=== PATIENT | female | born 1935 | race Two or more races ===

== ENCOUNTER 2018-01-02 15:50 | Inpatient (IN) | payer MEDICARE, OTHER ==
[~2018-01-02] VITALS: Ht 157.5 cm; Wt 49.0 kg
[2018-01-02] MEDS ORDERED: Sodium Chloride 500ML 500 ML IV ONE (16:15)
[2018-01-02] MEDS ORDERED: Isovue-300 100ml vial INJ PRN (16:15)
[2018-01-02 16:36] LABS: BASOPHILS % (AUTO) 1.6 % (0.0-2.0); HEMATOCRIT 34.1 % (37.0-47.0); HEMOGLOBIN 12.1 G/DL (12.0-16.0); LYMPHOCYTES % (AUTO) 12.2 % (20.0-45.0); MEAN CORPUSCULAR VOLUME 89 FL (80-99); MONOCYTES % (AUTO) 12.4 % (1.0-10.0); NEUTROPHILS % (AUTO) 73.7 % (45.0-75.0); PLATELET COUNT 210 K/UL (150-450); RED BLOOD COUNT 3.83 M/UL (4.20-5.40); RED CELL DISTRIBUTION WIDTH 12.3 % (11.6-14.8); WHITE BLOOD COUNT 10.4 K/UL (4.8-10.8)
[2018-01-02 16:40] LABS: INR 0.9 (0.9-1.1)
[2018-01-02 16:45] LABS: ANION GAP 12 mmol/L (5-15); BLOOD UREA NITROGEN 11 mg/dL (7-18); CALCIUM 9.5 MG/DL (8.5-10.1); CARBON DIOXIDE 27 MMOL/L (21-32); CHLORIDE 97 MMOL/L (98-107); CREATININE 0.8 MG/DL (0.55-1.30); POTASSIUM 4.1 MMOL/L (3.5-5.1); SODIUM 136 MMOL/L (136-145)
[2018-01-02 16:48] LABS: ALANINE AMINOTRANSFERASE 28 U/L (12-78); ALBUMIN 3.8 G/DL (3.4-5.0); ALKALINE PHOSPHATASE 77 U/L (46-116); ASPARTATE AMINO TRANSFERASE 27 U/L (15-37); BILIRUBIN,TOTAL 0.8 MG/DL (0.2-1.0); CHOLESTEROL 252 MG/DL (< 200); HDL CHOLESTEROL 122 MG/DL (40-60); TRIGLYCERIDES 27 MG/DL (30-150)
[2018-01-02 16:59] VITALS: BP 140/71
--- NOTE | 2018-01-02 17:01 | Diagnostic Imaging Report ---
Indication: Altered mental status Technique: spiral acquisitions obtained through the brain. Angled axial and coronal 5 x 5 mm slices were reconstructed. No IV contrast utilized. Radiation dose was minimized using automated exposure control Total dose length product 1400.72 mGycm. CTDIvol(s) 70.38 mGy Comparison: none FINDINGS: No acute hemorrhage or edema. No mass effect or midline shift. There is age-related enlargement of the ventricles and extra axial CSF spaces. There is periventricular deep white matter ischemic change. Normal gross-white differentiation. Visualized orbits are unremarkable. Visualized sinuses are unremarkable. Intact calvarium. IMPRESSION: Chronic and age-related changes. Negative for acute intracranial bleed or mass effect The CT scanner at [facility] is accredited by the [employer] and the scans are performed using protocols designed to limit radiation exposure to as low as reasonably achievable to attain images of sufficient resolution adequate for diagnostic evaluation
[2018-01-02] MEDS: Thiamine HCl 100 MG in D5W 55 ML IVPB SCH (17:03)
[2018-01-02 17:04] LABS: APPEARANCE,URINE CLOUDY; BILIRUBIN, URINE NEGATIVE (NEGATIVE); COLOR,URINE PALE YELLOW; GLUCOSE, URINE (UA) NEGATIVE (NEGATIVE); KETONES,URINE 2+ (NEGATIVE); LEUKOCYTE ESTERASE ,URINE 3+ (NEGATIVE); NITRITE,URINE NEGATIVE (NEGATIVE); PH,URINE 8 (4.5-8.0); PROTEIN,URINE 2+ (NEGATIVE); UROBILINOGEN,URINE NORMAL MG/DL (0.0-1.0)
[2018-01-02] MEDS ORDERED: cefTRIAXone 1 GM in NS 55 ML IVPB ONE (17:15)
--- NOTE | 2018-01-02 18:06 | Diagnostic Imaging Report ---
EXAM: CT Abdomen and Pelvis With Intravenous Contrast CLINICAL HISTORY: PAIN TECHNIQUE: Axial computed tomography images of the abdomen and pelvis with intravenous contrast. CTDI is 11 mGy and DLP is 509 mGy-cm. One or more of the following dose reduction techniques were used: automated exposure control, adjustment of the mA and/or kV according to patient size, use of iterative reconstruction technique. COMPARISON: No relevant prior studies available. FINDINGS: Lung bases: No mass. No consolidation. ABDOMEN: Liver: Small hepatic hypodensities likely cysts, too small to characterize. Gallbladder and bile ducts: Unremarkable. No calcified stones. Pancreas: Unremarkable. Spleen: Unremarkable. Adrenals: Unremarkable. Kidneys and ureters: No hydronephrosis. Bilateral ureteral enhancement concerning for UTI. Stomach and bowel: Unremarkable. No obstruction. PELVIS: Appendix: No findings to suggest acute appendicitis. Bladder: Thickened bladder concerning for cystitis. Cannot exclude underlying bladder lesion. Reproductive: Hysterectomy. ABDOMEN and PELVIS: Intraperitoneal space: No free air. Bones/joints: No acute fracture. Soft tissues: Unremarkable. Vasculature: Unremarkable. Lymph nodes: Unremarkable. No enlarged lymph nodes. IMPRESSION: 1. Thickened bladder concerning for cystitis. Cannot exclude underlying bladder lesion. 2. No hydronephrosis. Bilateral ureteral enhancement concerning for UTI.
[2018-01-02 19:01] VITALS: BP 159/71
[2018-01-02] MEDS ORDERED: Aspirin Baby 81mg ORAL SCH (19:15)
--- NOTE | 2018-01-02 19:41 | Emergency Room Report ---
History of Present Illness General Chief Complaint: Generalized Weakness Source: Patient Present Illness HPI Patient is an 82-year-old female who presented after increased generalized weakness. Patient reported having recently been hospitalized and treated for H. pylori with multiple antibiotics. Patient had been having increased dysuria. She reports having increased lower abdominal pain. The patient denies any fever. The patient had reportedly been having multiple falls prior recent hospitalization. Patient prior cataract surgery to her left eye. The patient denies prior history of dementia Allergies: Coded Allergies: No Known Allergies (Unverified , 01/02/18) Patient History Past Medical History: see triage record Reviewed Nursing Documentation: PMH: Agreed; PSxH: Agreed Nursing Documentation-PMH Past Medical History: No History, Except For Hx Diabetes: Yes - PRE DM Review of Systems All Other Systems: negative except mentioned in HPI Physical Exam Vital Signs Date Time Temp Pulse Resp B/P (MAP) Pulse Ox O2 Delivery O2 Flow Rate FiO2 01/02/18 15:51 99.1 91 18 132/76 99 Room Air 99.1 Sp02 EP Interpretation: reviewed, normal General Appearance: normal inspection, well appearing, no apparent distress, alert, Chronically Ill Head: atraumatic Eyes: bilateral eye other - left pupil postsurgical ENT: normal ENT inspection, hearing grossly normal, normal voice Neck: normal inspection, full range of motion, supple, no bony tend Respiratory: normal inspection, lungs clear, normal breath sounds, no respiratory distress, no retraction, no wheezing Cardiovascular #1: regular rate, rhythm, no edema Gastrointestinal: normal inspection, normal bowel sounds, non tender, soft, no guarding, no hernia Genitourinary: no CVA tenderness Musculoskeletal: normal inspection, back normal, normal range of motion Neurologic: normal inspection, alert, oriented x3, responsive, support services coordinator III-XII nml as tested, speech normal Psychiatric: normal inspection, judgement/insight normal, mood/affect normal Skin: normal inspection, normal color, no rash Medical Decision Making Diagnostic Impression: Primary Impression: UTI (urinary tract infection) Additional Impression: Generalized weakness ER Course Patient presented for generalized weakness. Differential diagnosis included was not limited to anemia, urinary tract infection, electrolyte abnormality, hypothyroidism, myocardial infarction, myasthenia gravis, dehydration, among others. Because of complexity of patient's case laboratory testing and imaging studies were ordered. The patient noted have evidence of urinary infection. Patient was started on IV antibiotics. Patient was noted to have subsequent change in her mental status. Patient was given rectal aspirin. CT abdomen pelvis read by radiology showed the findings consistent with cystitis. The CT of the head read by radiology showed chronic ischemic white matter changes without evident acute CVA Patient was discussed with Dr. Owusu for Dr. Arreguin for inpatient management. Labs Test 01/02/18 16:15 01/02/18 16:47 White Blood Count 10.4 K/UL (4.8-10.8) Red Blood Count 3.83 M/UL (4.20-5.40) Hemoglobin 12.1 G/DL (12.0-16.0) Hematocrit 34.1 % (37.0-47.0) Mean Corpuscular Volume 89 FL (80-99) Mean Corpuscular Hemoglobin 31.5 PG (27.0-31.0) Mean Corpuscular Hemoglobin Concent 35.4 G/DL (32.0-36.0) Red Cell Distribution Width 12.3 % (11.6-14.8) Platelet Count 210 K/UL (150-450) Mean Platelet Volume 6.2 FL (6.5-10.1) Neutrophils (%) (Auto) 73.7 % (45.0-75.0) Lymphocytes (%) (Auto) 12.2 % (20.0-45.0) Monocytes (%) (Auto) 12.4 % (1.0-10.0) Eosinophils (%) (Auto) 0.0 % (0.0-3.0) Basophils (%) (Auto) 1.6 % (0.0-2.0) Prothrombin Time 9.7 SEC (9.30-11.50) Prothromb Time International Ratio 0.9 (0.9-1.1) Activated Partial Thromboplast Time 30 SEC (23-33) Sodium Level 136 MMOL/L (136-145) Potassium Level 4.1 MMOL/L (3.5-5.1) Chloride Level 97 MMOL/L (98-107) Carbon Dioxide Level 27 MMOL/L (21-32) Anion Gap 12 mmol/L (5-15) Blood Urea Nitrogen 11 mg/dL (7-18) Creatinine 0.8 MG/DL (0.55-1.30) Estimat Glomerular Filtration Rate mL/min (>60) Glucose Level 125 MG/DL (74-106) Calcium Level 9.5 MG/DL (8.5-10.1) Total Bilirubin 0.8 MG/DL (0.2-1.0) Aspartate Amino Transf (AST/SGOT) 27 U/L (15-37) Alanine Aminotransferase (ALT/SGPT) 28 U/L (12-78) Alkaline Phosphatase 77 U/L (46-116) Total Protein 7.6 G/DL (6.4-8.2) Albumin 3.8 G/DL (3.4-5.0) Globulin 3.8 g/dL Albumin/Globulin Ratio 1.0 (1.0-2.7) Triglycerides Level 27 MG/DL (30-150) Cholesterol Level 252 MG/DL (< 200) LDL Cholesterol 115 mg/dL (<100) HDL Cholesterol 122 MG/DL (40-60) Cholesterol/HDL Ratio 2.1 (3.3-4.4) Urine Color Pale yellow Urine Appearance Cloudy Urine pH 8 (4.5-8.0) Urine Specific [place] 1.010 (1.005-1.035) Urine Protein 2+ (NEGATIVE) Urine Glucose (UA) Negative (NEGATIVE) Urine Ketones 2+ (NEGATIVE) Urine Occult Blood 5+ (NEGATIVE) Urine Nitrite Negative (NEGATIVE) Urine Bilirubin Negative (NEGATIVE) Urine Urobilinogen Normal MG/DL (0.0-1.0) Urine Leukocyte Esterase 3+ (NEGATIVE) Urine RBC 2-4 /HPF (0 - 2) Urine WBC Tntc /HPF (0 - 2) Urine Squamous Epithelial Cells Few /LPF (NONE/OCC) Urine Bacteria Moderate /HPF (NONE) EKG Diagnostic Results Rate: normal Rhythm: NSR ST Segments: no acute changes Rhythm Strip Diag. Results EP Interpretation: yes Rhythm: NSR, no PVC's, no ectopy Last Vital Signs Date Time Temp Pulse Resp B/P (MAP) Pulse Ox O2 Delivery O2 Flow Rate FiO2 01/02/18 19:01 128 25 159/71 98 Room Air 01/02/18 16:59 99.2 99.2 Status: unchanged Disposition: ADMITTED INPATIENT Condition: Serious Referrals: NOT CHOSEN IPA/,REFERRING (PCP) Jaswant White MD January 02, 2018 19:41
[2018-01-02 20:30] VITALS: BP 110/56
[2018-01-02] MEDS ORDERED: ATORVASTATIN CA10 MG ORAL (21:35)
[2018-01-02] MEDS ORDERED: TIMOPTIC 0.25%1 DROP BOTH EYES (21:35)
[2018-01-02] MEDS: D5 1/2NS 1,000 ML IV SCH (21:39)
[2018-01-03] VITALS: BP 100/60
[2018-01-03 04:00] VITALS: BP 111/63
[2018-01-03 07:51] LABS: BASOPHILS % (AUTO) 0.4 % (0.0-2.0); EOSINOPHILS % (AUTO) 0.1 % (0.0-3.0); HEMATOCRIT 32.7 % (37.0-47.0); HEMOGLOBIN 10.9 G/DL (12.0-16.0); LYMPHOCYTES % (AUTO) 13.5 % (20.0-45.0); MEAN CORPUSCULAR VOLUME 92 FL (80-99); NEUTROPHILS % (AUTO) 74.2 % (45.0-75.0); PLATELET COUNT 209 K/UL (150-450); RED BLOOD COUNT 3.57 M/UL (4.20-5.40); RED CELL DISTRIBUTION WIDTH 12.8 % (11.6-14.8); WHITE BLOOD COUNT 12.1 K/UL (4.8-10.8)
[2018-01-03 07:59] LABS: ANION GAP 9 mmol/L (5-15); BLOOD UREA NITROGEN 7 mg/dL (7-18); CALCIUM 8.8 MG/DL (8.5-10.1); CARBON DIOXIDE 27 MMOL/L (21-32); CHLORIDE 105 MMOL/L (98-107); CREATININE 0.8 MG/DL (0.55-1.30); POTASSIUM 3.5 MMOL/L (3.5-5.1); SODIUM 140 MMOL/L (136-145)
[2018-01-03 08:00] VITALS: BP 108/53
[2018-01-03] MEDS: Timolol 0.5% Op Soln 2.5ml BOTH EYES SCH ×2 (08:48→18:54)
[2018-01-03] MEDS ORDERED: Tubing IV Secondary IV ONE (10:49)
[2018-01-03] MEDS ORDERED: D5 1/2NS 1000ml IV ONE (10:49)
[2018-01-03] MEDS: D5 1/2NS 1,000 ML IV SCH (10:50)
[2018-01-03 12:00] VITALS: BP 106/62
--- NOTE | 2018-01-03 14:26 | History and Physical ---
History of Present Illness General Date patient seen: January 03, 2018 Reason for Hospitalization: Generalized Weakness Present Illness HPI Patient is an 82-year-old female who presented after increased generalized weakness. Patient reported having recently been hospitalized and treated for H. pylori with multiple antibiotics. Patient had been having increased dysuria. She reports having increased lower abdominal pain. The patient denies any fever. The patient had reportedly been having multiple falls prior recent hospitalization. Denies any cough, diarrhea. No shortness of breath Allergies: Coded Allergies: No Known Allergies (Unverified , 01/02/18) Medication History Scheduled Atorvastatin Calcium* (Lipitor*), 10 MG ORAL BEDTIME, (Reported) Timolol Maleate (Timolol Maleate), 1 DROP BOTH EYES TWICE A DAY, (Reported) Patient History Healthcare decision maker Resuscitation status Full Code Advanced Directive on File Yes Physical Exam Last 24 Hour Vital Signs Date Time Temp Pulse Resp B/P (MAP) Pulse Ox O2 Delivery O2 Flow Rate FiO2 01/03/18 12:00 97.1 80 18 106/62 99 97.1 01/03/18 12:00 97.1 80 17 106/62 99 Room Air 97.1 01/03/18 08:00 97.9 89 18 108/53 99 97.9 01/03/18 08:00 Room Air 01/03/18 04:00 97.9 91 18 111/63 100 97.9 01/03/18 00:00 Room Air 01/03/18 00:00 99.1 95 17 100/60 97 99.1 01/02/18 20:43 99.2 128 25 159/71 98 Room Air 99.2 01/02/18 20:30 Room Air 01/02/18 20:30 101.7 110 17 110/56 100 101.7 01/02/18 19:01 128 25 159/71 98 Room Air 01/02/18 16:59 99.2 91 12 140/71 100 Room Air 99.2 01/02/18 15:51 99.1 91 18 132/76 99 Room Air 99.1 Intake and Output 01/02/18 01/03/18 19:00 07:00 Intake Total 611 ml 776.25 ml Balance 611 ml 776.25 ml Intake Oral 0 ml IV Total 611 ml 776.25 ml # Voids 6 # Bowel Movements 6 Laboratory Tests Test 01/02/18 16:15 01/02/18 16:47 01/02/18 22:20 01/03/18 06:00 White Blood Count 10.4 K/UL (4.8-10.8) 12.1 K/UL (4.8-10.8) H Red Blood Count 3.83 M/UL (4.20-5.40) L 3.57 M/UL (4.20-5.40) L Hemoglobin 12.1 G/DL (12.0-16.0) 10.9 G/DL (12.0-16.0) L Hematocrit 34.1 % (37.0-47.0) L 32.7 % (37.0-47.0) L Mean Corpuscular Volume 89 FL (80-99) 92 FL (80-99) Mean Corpuscular Hemoglobin 31.5 PG (27.0-31.0) H 30.6 PG (27.0-31.0) Mean Corpuscular Hemoglobin Concent 35.4 G/DL (32.0-36.0) 33.5 G/DL (32.0-36.0) Red Cell Distribution Width 12.3 % (11.6-14.8) 12.8 % (11.6-14.8) Platelet Count 210 K/UL (150-450) 209 K/UL (150-450) Mean Platelet Volume 6.2 FL (6.5-10.1) L 6.5 FL (6.5-10.1) Neutrophils (%) (Auto) 73.7 % (45.0-75.0) 74.2 % (45.0-75.0) Lymphocytes (%) (Auto) 12.2 % (20.0-45.0) L 13.5 % (20.0-45.0) L Monocytes (%) (Auto) 12.4 % (1.0-10.0) H 12.0 % (1.0-10.0) H Eosinophils (%) (Auto) 0.0 % (0.0-3.0) 0.1 % (0.0-3.0) Basophils (%) (Auto) 1.6 % (0.0-2.0) 0.4 % (0.0-2.0) Prothrombin Time 9.7 SEC (9.30-11.50) Prothromb Time International Ratio 0.9 (0.9-1.1) Activated Partial Thromboplast Time 30 SEC (23-33) Sodium Level 136 MMOL/L (136-145) 140 MMOL/L (136-145) Potassium Level 4.1 MMOL/L (3.5-5.1) 3.5 MMOL/L (3.5-5.1) Chloride Level 97 MMOL/L (98-107) L 105 MMOL/L (98-107) Carbon Dioxide Level 27 MMOL/L (21-32) 27 MMOL/L (21-32) Anion Gap 12 mmol/L (5-15) 9 mmol/L (5-15) Blood Urea Nitrogen 11 mg/dL (7-18) 7 mg/dL (7-18) Creatinine 0.8 MG/DL (0.55-1.30) 0.8 MG/DL (0.55-1.30) Estimat Glomerular Filtration Rate mL/min (>60) mL/min (>60) Glucose Level 125 MG/DL (74-106) H 142 MG/DL (74-106) H Calcium Level 9.5 MG/DL (8.5-10.1) 8.8 MG/DL (8.5-10.1) Total Bilirubin 0.8 MG/DL (0.2-1.0) Aspartate Amino Transf (AST/SGOT) 27 U/L (15-37) Alanine Aminotransferase (ALT/SGPT) 28 U/L (12-78) Alkaline Phosphatase 77 U/L (46-116) Total Protein 7.6 G/DL (6.4-8.2) Albumin 3.8 G/DL (3.4-5.0) Globulin 3.8 g/dL Albumin/Globulin Ratio 1.0 (1.0-2.7) Triglycerides Level 27 MG/DL (30-150) L Cholesterol Level 252 MG/DL (< 200) H LDL Cholesterol 115 mg/dL (<100) H HDL Cholesterol 122 MG/DL (40-60) H Cholesterol/HDL Ratio 2.1 (3.3-4.4) L Urine Color Pale yellow Urine Appearance Cloudy Urine pH 8 (4.5-8.0) Urine Specific [place] 1.010 (1.005-1.035) Urine Protein 2+ (NEGATIVE) H Urine Glucose (UA) Negative (NEGATIVE) Urine Ketones 2+ (NEGATIVE) H Urine Occult Blood 5+ (NEGATIVE) H Urine Nitrite Negative (NEGATIVE) Urine Bilirubin Negative (NEGATIVE) Urine Urobilinogen Normal MG/DL (0.0-1.0) Urine Leukocyte Esterase 3+ (NEGATIVE) H Urine RBC 2-4 /HPF (0 - 2) H Urine WBC Tntc /HPF (0 - 2) H Urine Squamous Epithelial Cells Few /LPF (NONE/OCC) Urine Bacteria Moderate /HPF (NONE) H Stool Helicobacter pylori Antigen Pending Microbiology Date/Time Source Procedure Growth Status 01/02/18 16:47 Urine,Clean Catch Urine Culture - Preliminary Gram Negative [place] Resulted Height (Feet): 5 Height (Inches): 2.00 Weight (Pounds): 108 Medications Current Medications Medications (Trade) Dose Ordered Sig/Garrick Route PRN Reason Start Time Stop Time Status Last Admin Dose Admin Acetaminophen (Tylenol) 650 mg Q6H PRN ORAL Mild Pain/Temp > 100.5 01/02/18 21:15 02/01/18 21:14 Atorvastatin Calcium (Lipitor) 10 mg BEDTIME ORAL 01/03/18 21:00 02/02/18 20:59 Dextrose/Sodium Chloride 1,000 ml @ 75 mls/hr [id number] IV 01/02/18 21:30 02/01/18 21:29 01/03/18 10:50 Levofloxacin 150 ml @ 100 mls/hr Q48H IVPB 01/04/18 23:00 01/11/18 22:59 Ondansetron HCl (Zofran) 4 mg Q4H PRN IVP Nausea & Vomiting 01/02/18 21:15 02/01/18 21:14 Thiamine HCl 100 mg/Dextrose 56 ml @ 112 mls/hr Q24H IVPB 01/02/18 16:15 02/01/18 16:14 01/02/18 17:03 Timolol Maleate (Timoptic 0.5% Op Soln) 1 drop TWICE A DAY BOTH EYES 01/03/18 09:00 02/02/18 08:59 01/03/18 08:48 Assessment/Plan Problem List: (1) Generalized weakness ICD Codes: R53.1 - Weakness SNOMED: 70222761 (2) Syncopal episodes ICD Codes: R55 - Syncope and collapse SNOMED: 144758150 (3) UTI (urinary tract infection) ICD Codes: N39.0 - Urinary tract infection, site not specified SNOMED: 66328244 (4) Hypotension ICD Codes: I95.9 - Hypotension, unspecified SNOMED: 28362458 Status: stable Assessment/Plan - admit inpatient - levaquin for UTI - follow urine cx - follow blood cx - IVF - pain control - PT/OT - fall precaution - supportive care - resume home meds - check TSh Jordin Suarez M.D. January 03, 2018 14:26
[2018-01-03 15:53] VITALS: BP 121/74
[2018-01-03] MEDS: Thiamine HCl 100 MG in D5W 55 ML IVPB SCH (18:54)
[2018-01-03 20:00] VITALS: BP 127/70
[2018-01-04] VITALS: BP 141/72
[2018-01-04] MEDS: D5 1/2NS 1,000 ML IV SCH ×2 (00:33→13:46)
[2018-01-04 04:00] VITALS: BP 124/77
[2018-01-04 08:24] VITALS: BP 118/66
[2018-01-04] MEDS: Timolol 0.5% Op Soln 2.5ml BOTH EYES SCH ×2 (08:43→18:36)
[2018-01-04] MEDS ORDERED: 1/2 NS 1000ml IV ONE (11:35)
[2018-01-04 12:07] VITALS: BP 129/74
[2018-01-04 16:13] VITALS: BP 102/63
[2018-01-04] MEDS: Thiamine HCl 100 MG in D5W 55 ML IVPB SCH (18:36)
--- NOTE | 2018-01-04 18:36 | Internal Med Progress Note ---
Subjective Date of Service: January 04, 2018 Physician Name Jordin Suarez Attending Physician Bo Collazo MD Current Medications Medications (Trade) Dose Ordered Sig/Garrick Route PRN Reason Start Time Stop Time Status Last Admin Dose Admin Acetaminophen (Tylenol) 650 mg Q6H PRN ORAL Mild Pain/Temp > 100.5 01/02/18 21:15 02/01/18 21:14 Atorvastatin Calcium (Lipitor) 10 mg BEDTIME ORAL 01/03/18 21:00 02/02/18 20:59 01/03/18 20:24 Dextrose/Sodium Chloride 1,000 ml @ 75 mls/hr [id number] IV 01/02/18 21:30 02/01/18 21:29 01/04/18 13:46 Levofloxacin 150 ml @ 100 mls/hr Q48H IVPB 01/04/18 23:00 01/11/18 22:59 Ondansetron HCl (Zofran) 4 mg Q4H PRN IVP Nausea & Vomiting 01/02/18 21:15 02/01/18 21:14 Thiamine HCl 100 mg/Dextrose 56 ml @ 112 mls/hr Q24H IVPB 01/02/18 16:15 02/01/18 16:14 01/03/18 18:54 Timolol Maleate (Timoptic 0.5% Op Soln) 1 drop TWICE A DAY BOTH EYES 01/03/18 09:00 02/02/18 08:59 01/04/18 08:43 Allergies: Coded Allergies: No Known Allergies (Unverified , 01/02/18) All Systems: reviewed and negative except above Subjective No acute events overnight feeling better today complains of acid reflux and constipation Objective Last Vital Signs Date Time Temp Pulse Resp B/P (MAP) Pulse Ox O2 Delivery O2 Flow Rate FiO2 01/04/18 16:15 Room Air 01/04/18 16:13 98.2 77 20 102/63 97 98.2 General Appearance: no apparent distress EENT: PERRL/EOMI Neck: non-tender, normal alignment Cardiovascular: normal peripheral pulses Respiratory/Chest: chest wall non-tender Abdomen: normal bowel sounds Neurologic: alert, oriented x 3 Skin: normal pigmentation, warm/dry Microbiology Date/Time Source Procedure Growth Status 01/03/18 00:00 Urine,Clean Catch Urine Culture - Preliminary NO GROWTH Resulted 01/02/18 16:47 Urine,Clean Catch Urine Culture - Final Escherichia Coli Complete Intake and Output 01/03/18 01/04/18 19:00 07:00 Intake Total 1305 ml 881 ml Balance 1305 ml 881 ml Intake Oral 480 ml IV Total 825 ml 881 ml # Voids 4 Assessment/Plan Problem List: (1) Generalized weakness (2) Syncopal episodes (3) UTI (urinary tract infection) (4) Hypotension Assessment/Plan Assessment/Plan Problem List: (1) Generalized weakness ICD Codes: R53.1 - Weakness SNOMED: 82359542 (2) Syncopal episodes ICD Codes: R55 - Syncope and collapse SNOMED: 616436767 (3) UTI (urinary tract infection) ICD Codes: N39.0 - Urinary tract infection, site not specified SNOMED: 17325867 (4) Hypotension ICD Codes: I95.9 - Hypotension, unspecified SNOMED: 08834112 Status: stable Assessment/Plan - levaquin for UTI - follow urine cx- so far growing ecoli - IVF - pain control - PT/OT - fall precaution - supportive care - resume home meds - protonix 40 IV daily - bowel regimen DVT ppx fullcode Jordin Suarez M.D. January 04, 2018 18:36
[2018-01-04 20:00] VITALS: BP 109/70
[2018-01-05] VITALS: BP 138/78
[2018-01-05] MEDS: D5 1/2NS 1,000 ML IV SCH ×2 (01:45→15:30)
[2018-01-05 04:00] VITALS: BP 110/67
[2018-01-05 08:00] VITALS: BP_SYST 104; BP_SYST 128; BP_DIAS 60; BP_DIAS 63
[2018-01-05] MEDS: Docusate Sod/Senna tab ORAL SCH ×2 (09:18→17:08)
[2018-01-05] MEDS: Timolol 0.5% Op Soln 2.5ml BOTH EYES SCH ×2 (09:18→17:08)
[2018-01-05] MEDS: Pantoprazole Inj IVP SCH (09:18)
[2018-01-05 12:00] VITALS: BP 112/60
[2018-01-05 14:43] LABS: BASOPHILS % (AUTO) 0.9 % (0.0-2.0); EOSINOPHILS % (AUTO) 1.2 % (0.0-3.0); HEMATOCRIT 33.2 % (37.0-47.0); HEMOGLOBIN 11.5 G/DL (12.0-16.0); LYMPHOCYTES % (AUTO) 25.1 % (20.0-45.0); MEAN CORPUSCULAR VOLUME 90 FL (80-99); MONOCYTES % (AUTO) 17.5 % (1.0-10.0); NEUTROPHILS % (AUTO) 55.2 % (45.0-75.0); PLATELET COUNT 201 K/UL (150-450); RED BLOOD COUNT 3.67 M/UL (4.20-5.40); RED CELL DISTRIBUTION WIDTH 12.9 % (11.6-14.8); WHITE BLOOD COUNT 6.9 K/UL (4.8-10.8)
[2018-01-05 14:54] LABS: ANION GAP 10 mmol/L (5-15); BLOOD UREA NITROGEN 6 mg/dL (7-18); CALCIUM 8.9 MG/DL (8.5-10.1); CARBON DIOXIDE 24 MMOL/L (21-32); CHLORIDE 104 MMOL/L (98-107); CREATININE 0.7 MG/DL (0.55-1.30); POTASSIUM 3.7 MMOL/L (3.5-5.1); SODIUM 137 MMOL/L (136-145)
[2018-01-05 15:01] LABS: ALANINE AMINOTRANSFERASE 34 U/L (12-78); ALBUMIN/GLOBULIN RATIO 0.8 (1.0-2.7); ALKALINE PHOSPHATASE 84 U/L (46-116); ASPARTATE AMINO TRANSFERASE 20 U/L (15-37); BILIRUBIN,TOTAL 0.2 MG/DL (0.2-1.0)
[2018-01-05 16:00] VITALS: BP 120/83
[2018-01-05 20:00] VITALS: BP 102/62
--- NOTE | 2018-01-05 23:18 | Cardiology Report ---
APPROVED REPORT EKG Measurement Heart [id number] Normal sinus rhythm Incomplete RBBB Left anterior fascicular block Cannot rule out Inferior infarct, age undetermined Possible Anterior infarct, age undetermined Abnormal ECG
--- NOTE | 2018-01-05 23:35 | General Progress Note ---
Assessment/Plan Problem List: (1) H pylori ulcer ICD Codes: K27.9 - Peptic ulcer, site unspecified, unspecified as acute or chronic, without hemorrhage or perforation; B96.81 - Helicobacter pylori [H. pylori] as the cause of diseases classified elsewhere SNOMED: 2282160, 25888609 (2) Hypotension ICD Codes: I95.9 - Hypotension, unspecified SNOMED: 30479684 (3) UTI (urinary tract infection) ICD Codes: N39.0 - Urinary tract infection, site not specified SNOMED: 88990762 (4) Syncopal episodes ICD Codes: R55 - Syncope and collapse SNOMED: 159957028 (5) Generalized weakness ICD Codes: R53.1 - Weakness SNOMED: 24696895 Status: stable, progressing Assessment/Plan - GI consilted for inpatient egd/colonoscopy to evaluate for resolution of H. pylori infection - levaquin for UTI - follow urine cx- so far growing ecoli - IVF - pain control - PT/OT - fall precaution - supportive care - resume home meds - protonix 40 IV daily - bowel regimen DVT ppx fullcode Subjective Date patient seen: January 05, 2018 Time patient seen: 11:00 Allergies: Coded Allergies: No Known Allergies (Unverified , 01/02/18) Subjective - doing well - AF, HDS - denies cp, sob - daughter/patient requesting for inpatient colonoscopy and egd as patient just finished her course of H. pylori and also reports occasional bouts of diarrhea. currently denies any Objective Last 24 Hour Vital Signs Date Time Temp Pulse Resp B/P (MAP) Pulse Ox O2 Delivery O2 Flow Rate FiO2 01/05/18 20:00 97.9 78 16 102/62 99 97.9 01/05/18 16:01 Room Air 01/05/18 16:00 98.2 75 19 120/83 99 98.2 01/05/18 12:01 Room Air 01/05/18 12:00 97.6 91 20 112/60 97 97.6 01/05/18 08:01 Room Air 01/05/18 08:00 97.8 85 20 104/63 97 97.8 01/05/18 04:00 98.2 77 18 110/67 99 98.2 01/05/18 00:27 Room Air 01/05/18 00:00 98.2 80 18 138/78 97 98.2 Intake and Output 01/04/18 01/05/18 19:00 07:00 Intake Total 1860 ml 1275 ml Balance 1860 ml 1275 ml Intake Oral 960 ml 300 ml IV Total 900 ml 975 ml # Voids 3 3 Laboratory Tests 01/05/18 14:32: White Blood Count 6.9, Red Blood Count 3.67L, Hemoglobin 11.5L, Hematocrit 33.2L , Mean Corpuscular Volume 90, Mean Corpuscular Hemoglobin 31.4H, Mean Corpuscular Hemoglobin Concent 34.7, Red Cell Distribution Width 12.9, Platelet Count 201, Mean Platelet Volume 5.9L, Neutrophils (%) (Auto) 55.2, Lymphocytes ( %) (Auto) 25.1, Monocytes (%) (Auto) 17.5H, Eosinophils (%) (Auto) 1.2, Basophils (%) (Auto) 0.9, Sodium Level 137, Potassium Level 3.7, Chloride Level 104, Carbon Dioxide Level 24, Anion Gap 10, Blood Urea Nitrogen 6L, Creatinine 0.7, Estimat Glomerular Filtration Rate , Glucose Level 134H, Calcium Level 8.9 , Total Bilirubin 0.2, Aspartate Amino Transf (AST/SGOT) 20, Alanine Aminotransferase (ALT/SGPT) 34, Alkaline Phosphatase 84, Total Protein 7.0, Albumin 3.0L, Globulin 4.0, Albumin/Globulin Ratio 0.8L Height (Feet): 5 Height (Inches): 2.00 Weight (Pounds): 108 General Appearance: no apparent distress, alert EENT: PERRL/EOMI, normal ENT inspection Neck: non-tender, normal alignment, supple Cardiovascular: normal peripheral pulses, normal rate, regular rhythm Respiratory/Chest: chest wall non-tender, lungs clear, normal breath sounds Abdomen: normal bowel sounds, non tender, soft Extremities: normal range of motion, non-tender Neurologic: manager trading II-XII grossly normal, no motor/sensory deficits, alert, oriented x 3 Skin: normal pigmentation, warm/dry Solange Lreoy NP January 05, 2018 23:35
[2018-01-06] VITALS: BP 139/73
[2018-01-06 04:00] VITALS: BP 136/83
[2018-01-06] MEDS: D5 1/2NS 1,000 ML IV SCH (05:00)
[2018-01-06 08:00] VITALS: BP 122/68
[2018-01-06 08:05] LABS: EOSINOPHILS % (AUTO) 1.2 % (0.0-3.0); HEMATOCRIT 35.2 % (37.0-47.0); HEMOGLOBIN 11.8 G/DL (12.0-16.0); LYMPHOCYTES % (AUTO) 28.9 % (20.0-45.0); MEAN CORPUSCULAR VOLUME 91 FL (80-99); MONOCYTES % (AUTO) 14.8 % (1.0-10.0); NEUTROPHILS % (AUTO) 54.2 % (45.0-75.0); PLATELET COUNT 219 K/UL (150-450); RED BLOOD COUNT 3.85 M/UL (4.20-5.40); RED CELL DISTRIBUTION WIDTH 12.3 % (11.6-14.8); WHITE BLOOD COUNT 5.7 K/UL (4.8-10.8)
[2018-01-06] MEDS: Docusate Sod/Senna tab ORAL SCH ×2 (08:12→17:41)
[2018-01-06] MEDS: Pantoprazole Inj IVP SCH (08:12)
[2018-01-06] MEDS: Timolol 0.5% Op Soln 2.5ml BOTH EYES SCH ×2 (08:13→17:40)
[2018-01-06 08:32] LABS: ANION GAP 10 mmol/L (5-15); BLOOD UREA NITROGEN 5 mg/dL (7-18); CARBON DIOXIDE 26 MMOL/L (21-32); CHLORIDE 106 MMOL/L (98-107); CREATININE 0.7 MG/DL (0.55-1.30); POTASSIUM 3.8 MMOL/L (3.5-5.1); SODIUM 142 MMOL/L (136-145)
[2018-01-06] MEDS ORDERED: Thiamine 100mg tab ORAL SCH (09:00)
[2018-01-06 11:40] VITALS: BP 105/57
[2018-01-06] MEDS ORDERED: LEVAQUIN750 MG ORAL (13:35)
--- NOTE | 2018-01-06 14:42 | GI Initial Consult Note ---
History of Present Illness General Date patient seen: January 06, 2018 Time patient seen: 13:00 Reason for Hospitalization: Generalized Weakness Referring physician: HUSSEIN VANCE Reason for Consultation: H. PYLORI Present Illness HPI Patient is an 82-year-old female who presented after increased generalized weakness. Patient reported having recently been hospitalized and treated for H. pylori with multiple antibiotics. Patient had been having increased dysuria. She reports having increased lower abdominal pain. The patient denies any fever. The patient had reportedly been having multiple falls prior recent hospitalization. Patient prior cataract surgery to her left eye. The patient denies prior history of dementia. GI consulted for reports of H. Pylori s/p treatment. Pt seen, awake A&O NAD with no active s/sx of N/V/D. No abdominal pain. Daughter at bedside. Per patient, had recently been treated for H. Pylori but has no had a follow up. Last EGD/colonoscopy reported over 10 years ago. The patient is requesting for these GI procedures to be done. Labs and imaging studies reviewed. Home Meds Active Scripts Levofloxacin* (LEVAQUIN*) 750 Mg Tablet, 750 MG ORAL DAILY for 5 Days, #5 TAB Prov:Solange Leroy [employer]ESS [employer]INEER 01/06/18 Reported Medications Atorvastatin Calcium* (LIPITOR*) 10 Mg Tablet, 10 MG ORAL BEDTIME, TAB 01/02/18 Timolol Maleate (Timolol Maleate) 5 Ml Drops, 1 DROP BOTH EYES TWICE A DAY, #1 ML 0 Refills 01/02/18 Med list reviewed/reconciled: Yes Allergies: Coded Allergies: No Known Allergies (Unverified , 01/02/18) Patient History Limited by: medical condition History Provided By: Patient, Family Member, Medical Record PMH Narrative Past Medical History: see triage record Reviewed Nursing Documentation: PMH: Agreed; PSxH: Agreed Nursing Documentation-PMH Past Medical History: No History, Except For Hx Diabetes: Yes - PRE DM Social History: Denies: smoking, alcohol use, drug use, other Review of Systems All Other Systems: negative except mentioned in HPI Physical Exam Vital Signs Date Time Temp Pulse Resp B/P (MAP) Pulse Ox O2 Delivery O2 Flow Rate FiO2 01/02/18 15:51 99.1 91 18 132/76 99 Room Air 99.1 Sp02 EP Interpretation: reviewed, normal Labs Laboratory Tests Test 01/06/18 06:35 White Blood Count 5.7 K/UL (4.8-10.8) Red Blood Count 3.85 M/UL (4.20-5.40) L Hemoglobin 11.8 G/DL (12.0-16.0) L Hematocrit 35.2 % (37.0-47.0) L Mean Corpuscular Volume 91 FL (80-99) Mean Corpuscular Hemoglobin 30.7 PG (27.0-31.0) Mean Corpuscular Hemoglobin Concent 33.6 G/DL (32.0-36.0) Red Cell Distribution Width 12.3 % (11.6-14.8) Platelet Count 219 K/UL (150-450) Mean Platelet Volume 6.2 FL (6.5-10.1) L Neutrophils (%) (Auto) 54.2 % (45.0-75.0) Lymphocytes (%) (Auto) 28.9 % (20.0-45.0) Monocytes (%) (Auto) 14.8 % (1.0-10.0) H Eosinophils (%) (Auto) 1.2 % (0.0-3.0) Basophils (%) (Auto) 1.0 % (0.0-2.0) Sodium Level 142 MMOL/L (136-145) Potassium Level 3.8 MMOL/L (3.5-5.1) Chloride Level 106 MMOL/L (98-107) Carbon Dioxide Level 26 MMOL/L (21-32) Anion Gap 10 mmol/L (5-15) Blood Urea Nitrogen 5 mg/dL (7-18) L Creatinine 0.7 MG/DL (0.55-1.30) Estimat Glomerular Filtration Rate mL/min (>60) Glucose Level 123 MG/DL (74-106) H Calcium Level 9.0 MG/DL (8.5-10.1) General Appearance: well appearing, no apparent distress, alert, thin Head: normocephalic EENT: PERRL/EOMI, normal ENT inspection Neck: supple Respiratory: normal breath sounds, no respiratory distress Cardiovascular: normal rate Gastrointestinal: normal inspection, non tender, soft, normal bowel sounds, non -distended Rectal: deferred Genitourinary: no CVA tenderness Musculoskeletal: normal inspection, back normal Neurologic: normal inspection, alert, oriented x3, responsive Psychiatric: normal inspection, judgement/insight normal, memory normal Skin: normal inspection, normal color, no rash, warm/dry, palpation normal, well hydrated Lymphatic: normal inspection, no adenopathy Current Medications Current Medications Medications (Trade) Dose Ordered Sig/Garrick Route PRN Reason Start Time Stop Time Status Last Admin Dose Admin Acetaminophen (Tylenol) 650 mg Q6H PRN ORAL Mild Pain/Temp > 100.5 01/04/18 18:45 02/03/18 18:44 Atorvastatin Calcium (Lipitor) 10 mg BEDTIME ORAL 01/03/18 21:00 02/02/18 20:59 01/05/18 21:00 Dextrose/Sodium Chloride 1,000 ml @ 75 mls/hr [id number] IV 01/02/18 21:30 02/01/18 21:29 01/06/18 05:00 Levofloxacin 150 ml @ 100 mls/hr Q48H IVPB 01/04/18 23:00 01/11/18 22:59 01/04/18 22:06 Ondansetron HCl (Zofran) 4 mg Q4H PRN IVP Nausea & Vomiting 01/02/18 21:15 02/01/18 21:14 Pantoprazole (Protonix) 40 mg DAILY IVP 01/05/18 09:00 02/04/18 08:59 01/06/18 08:12 Senna/Docusate Sodium (Dana-Colace) 1 tab TWICE A DAY ORAL 01/05/18 09:00 02/04/18 08:59 01/06/18 08:12 Thiamine HCl (Vitamin B1) 100 mg DAILY ORAL 01/06/18 09:00 02/05/18 08:59 01/06/18 09:03 Timolol Maleate (Timoptic 0.5% Op Soln) 1 drop TWICE A DAY BOTH EYES 01/03/18 09:00 02/02/18 08:59 01/06/18 08:13 GI: Plan Problems: (1) H pylori ulcer (2) Syncopal episodes (3) Generalized weakness Plan okay for DC per GI standpoint patient will follow up as outpatient for Breast Test to confirm treatment of H. Pylori we will also schedule the patient for outpatient EGD/colonoscopy adv diet symptomatic treatment POC d/w with daughter who was at bedside. Discussed with Dr. Joyce. Thank you for this patient referral, we will follow. The patient was seen and examined at bedside and all new and available data was reviewed in the patients chart. I agree with the above findings, impression and plan. (Patient seen earlier today. Signature stamp does not reflect patient encounter time.). - MD Connie CariasBanner-Sammy PROCESS AUTOMATION ENGINEER January 06, 2018 14:42
--- NOTE | 2018-01-06 15:38 | Consultation ---
History of Present Illness General Date patient seen: January 05, 2018 Chief Complaint: Generalized Weakness Present Illness HPI 82-year-old female who presented after increased generalized weakness. the pt has long hx of depression and low appetite per daughter. the pt stated that she has low appetite and not sleeping. family conflicts. the pt is adamant against taking psych meds. the pt denies si/hi. Daughter encouraged her to take meds. she was told that meds will be prescribed as needed Allergies: Coded Allergies: No Known Allergies (Unverified , 01/02/18) Medication History Scheduled Atorvastatin Calcium* (Lipitor*), 10 MG ORAL BEDTIME, (Reported) Levofloxacin* (Levaquin*), 750 MG ORAL DAILY Timolol Maleate (Timolol Maleate), 1 DROP BOTH EYES TWICE A DAY, (Reported) Patient History Limited by: medical condition History Provided By: Patient, Family Member, Medical Record Healthcare decision maker Resuscitation status Full Code Advanced Directive on File Yes Past Medical/Surgical History Past Medical/Surgical History: (1) Generalized weakness (2) Syncopal episodes (3) UTI (urinary tract infection) (4) Hypotension (5) H pylori ulcer Review of Systems Psychiatric: Reports: prior hx, anxiety, depressed feelings, emotional problems Physical Exam General Appearance: WD/WN, no apparent distress, alert Neurologic: oriented x 3, responsive, depressed affect Last 24 Hour Vital Signs Date Time Temp Pulse Resp B/P (MAP) Pulse Ox O2 Delivery O2 Flow Rate FiO2 01/06/18 11:40 97.9 74 18 105/57 100 97.9 01/06/18 08:00 98.2 72 18 122/68 100 98.2 01/06/18 04:00 98.2 78 18 136/83 100 98.2 01/06/18 00:00 98.1 77 17 139/73 100 98.1 01/05/18 20:00 97.9 78 16 102/62 99 97.9 01/05/18 16:01 Room Air 01/05/18 16:00 98.2 75 19 120/83 99 98.2 Intake and Output 01/05/18 01/06/18 19:00 07:00 Intake Total 900 ml 900 ml Balance 900 ml 900 ml IV Total 900 ml 900 ml # Voids 4 Laboratory Tests Test 01/06/18 06:35 White Blood Count 5.7 K/UL (4.8-10.8) Red Blood Count 3.85 M/UL (4.20-5.40) L Hemoglobin 11.8 G/DL (12.0-16.0) L Hematocrit 35.2 % (37.0-47.0) L Mean Corpuscular Volume 91 FL (80-99) Mean Corpuscular Hemoglobin 30.7 PG (27.0-31.0) Mean Corpuscular Hemoglobin Concent 33.6 G/DL (32.0-36.0) Red Cell Distribution Width 12.3 % (11.6-14.8) Platelet Count 219 K/UL (150-450) Mean Platelet Volume 6.2 FL (6.5-10.1) L Neutrophils (%) (Auto) 54.2 % (45.0-75.0) Lymphocytes (%) (Auto) 28.9 % (20.0-45.0) Monocytes (%) (Auto) 14.8 % (1.0-10.0) H Eosinophils (%) (Auto) 1.2 % (0.0-3.0) Basophils (%) (Auto) 1.0 % (0.0-2.0) Sodium Level 142 MMOL/L (136-145) Potassium Level 3.8 MMOL/L (3.5-5.1) Chloride Level 106 MMOL/L (98-107) Carbon Dioxide Level 26 MMOL/L (21-32) Anion Gap 10 mmol/L (5-15) Blood Urea Nitrogen 5 mg/dL (7-18) L Creatinine 0.7 MG/DL (0.55-1.30) Estimat Glomerular Filtration Rate mL/min (>60) Glucose Level 123 MG/DL (74-106) H Calcium Level 9.0 MG/DL (8.5-10.1) Height (Feet): 5 Height (Inches): 2.00 Weight (Pounds): 108 Medications Current Medications Medications (Trade) Dose Ordered Sig/Garrick Route PRN Reason Start Time Stop Time Status Last Admin Dose Admin Acetaminophen (Tylenol) 650 mg Q6H PRN ORAL Mild Pain/Temp > 100.5 01/04/18 18:45 02/03/18 18:44 Atorvastatin Calcium (Lipitor) 10 mg BEDTIME ORAL 01/03/18 21:00 02/02/18 20:59 01/05/18 21:00 Dextrose/Sodium Chloride 1,000 ml @ 75 mls/hr [id number] IV 01/02/18 21:30 02/01/18 21:29 01/06/18 05:00 Levofloxacin 150 ml @ 100 mls/hr Q48H IVPB 01/04/18 23:00 01/11/18 22:59 01/04/18 22:06 Ondansetron HCl (Zofran) 4 mg Q4H PRN IVP Nausea & Vomiting 01/02/18 21:15 02/01/18 21:14 Pantoprazole (Protonix) 40 mg DAILY IVP 01/05/18 09:00 02/04/18 08:59 01/06/18 08:12 Senna/Docusate Sodium (Dana-Colace) 1 tab TWICE A DAY ORAL 01/05/18 09:00 02/04/18 08:59 01/06/18 08:12 Thiamine HCl (Vitamin B1) 100 mg DAILY ORAL 01/06/18 09:00 02/05/18 08:59 01/06/18 09:03 Timolol Maleate (Timoptic 0.5% Op Soln) 1 drop TWICE A DAY BOTH EYES 01/03/18 09:00 02/02/18 08:59 01/06/18 08:13 Assessment/Plan Assessment/Plan mdd anxiety d/o remeron 7.5mg qhs prn Esther Walters M.D. January 06, 2018 15:38
--- NOTE | 2018-01-06 15:38 | General Progress Note ---
Assessment/Plan Status: stable Assessment/Plan mdd anxiety d/o remeron 7.5mg qhs prn Subjective Date patient seen: January 06, 2018 Neurologic/Psychiatric: Reports: anxiety, depressed, emotional problems Allergies: Coded Allergies: No Known Allergies (Unverified , 01/02/18) Objective Last 24 Hour Vital Signs Date Time Temp Pulse Resp B/P (MAP) Pulse Ox O2 Delivery O2 Flow Rate FiO2 01/06/18 11:40 97.9 74 18 105/57 100 97.9 01/06/18 08:00 98.2 72 18 122/68 100 98.2 01/06/18 04:00 98.2 78 18 136/83 100 98.2 01/06/18 00:00 98.1 77 17 139/73 100 98.1 01/05/18 20:00 97.9 78 16 102/62 99 97.9 01/05/18 16:01 Room Air 01/05/18 16:00 98.2 75 19 120/83 99 98.2 Intake and Output 01/05/18 01/06/18 19:00 07:00 Intake Total 900 ml 900 ml Balance 900 ml 900 ml IV Total 900 ml 900 ml # Voids 4 Laboratory Tests 01/06/18 06:35: White Blood Count 5.7, Red Blood Count 3.85L, Hemoglobin 11.8L, Hematocrit 35.2L , Mean Corpuscular Volume 91, Mean Corpuscular Hemoglobin 30.7, Mean Corpuscular Hemoglobin Concent 33.6, Red Cell Distribution Width 12.3, Platelet Count 219, Mean Platelet Volume 6.2L, Neutrophils (%) (Auto) 54.2, Lymphocytes ( %) (Auto) 28.9, Monocytes (%) (Auto) 14.8H, Eosinophils (%) (Auto) 1.2, Basophils (%) (Auto) 1.0, Sodium Level 142, Potassium Level 3.8, Chloride Level 106, Carbon Dioxide Level 26, Anion Gap 10, Blood Urea Nitrogen 5L, Creatinine 0.7, Estimat Glomerular Filtration Rate , Glucose Level 123H, Calcium Level 9.0 Height (Feet): 5 Height (Inches): 2.00 Weight (Pounds): 108 General Appearance: WD/WN, no apparent distress, alert Neurologic: alert, oriented x 3, depressed affect Esther Walters M.D. January 06, 2018 15:38
[2018-01-06 15:48] VITALS: BP 121/63
[2018-01-06 15:49] VITALS: BP 96/58
[2018-01-06] MEDS ORDERED: Tubing IV Secondary IV ONE (18:27)
[2018-01-06] MEDS ORDERED: D5 1/2NS 1000ml IV ONE (18:27)
--- NOTE | 2018-01-06 22:55 | Discharge Summary ---
Discharge Summary Hospital Course Date of Admission January 02, 2018 at 17:38 Date of Discharge January 06, 2018 at 18:28 Admitting Diagnosis generalized weakness, urinary tract infection HPI Fay Garcia is a 82 year old female who was admitted on January 02, 2018 at 17: 38 for Generalized Weakness, Urinary Tract Infection Patient is an 82-year-old female who presented after increased generalized weakness. Patient reported having recently been hospitalized and treated for H. pylori with multiple antibiotics. Patient had been having increased dysuria. She reports having increased lower abdominal pain. The patient denies any fever. The patient had reportedly been having multiple falls prior recent hospitalization. Denies any cough, diarrhea. No shortness of breath Consultations GI, Dr. Joyce Hospital Course Patient was admitted and started on IV abx given UTI. Patient's leukocytosis resolved and antibiotics were changed depending on the urine culture and sensitivity. Patient became less lethargic and more hemodynamically stable and afebrile. Patient was also requesting a GI consultation given recent diagnosis and antibiotic treatment for H. pylori. Patient states that she finished her 4 week course of antibiotics. GI consultation was requested. Patient was advised to follow up as outpatient for breath test and/or outpatient EgD/colonoscopy. Patient was therefore stable for discharge. Patient refused SNF and therefore was discharged to home with daughter and home health for PT/OT. Patient was also discharged on oral antibiotics. Discharge Medications New Medications: Levofloxacin* (Levaquin*) 750 Mg Tablet 750 MG ORAL DAILY for 5 Days, #5 TAB Continued Medications: Atorvastatin Calcium* (Lipitor*) 10 Mg Tablet 10 MG ORAL BEDTIME, TAB (This prescription has been renewed) Timolol Maleate (Timolol Maleate) 5 Ml Drops 1 DROP BOTH EYES TWICE A DAY, #1 ML 0 Refills (This prescription has been renewed) Discharge Condition Upon Discharge: stable Discharge Disposition Patient was discharged to Home () with home health for PT/OT Discharge Diagnoses: (1) Generalized weakness (2) Syncopal episodes (3) UTI (urinary tract infection) (4) Hypotension (5) H pylori ulcer Solange Leroy NP January 06, 2018 22:55
== END 2018-01-06 18:28 | disposition home or self-care (01) | DRG 690 ==
LOC: EDBD 15:50 → EMR 16:36 → 4W 17:38 → EDBEDREQ 18:35
DX: N39.0 Urinary tract infection, site not specified (principal); K27.9 Peptic ulcer, site unspecified, unspecified as acute or chronic, without hemorrhage or perforation; B96.81 Helicobacter pylori [H. pylori] as the cause of diseases classified elsewhere; I95.9 Hypotension, unspecified; R55 Syncope and collapse; F32.9 Major depressive disorder, single episode, unspecified; F41.9 Anxiety disorder, unspecified; Z91.81 History of falling
CPT/HCPCS: 36415; 70450; 74177; 80048; 80053; 80061; 81003; 84443; 85025; 85610; 85730; 87040; 87086; 87181; 87338; 93005; 99283; C9399